=== PATIENT | male | born 2000 | race Caucasian/White ===

== ENCOUNTER 2023-01-30 15:16 | Emergency (ER) | payer OTHER, BC ==
[2023-01-30] MEDS ORDERED: Ondansetron ODT 4 MG TAB ONE (17:04)
== END 2023-01-30 18:07 | disposition home or self-care (01) ==
LOC: CSHERS 15:16
DX: S09.90XA Unspecified injury of head, initial encounter (principal); W01.0XXA Fall on same level from slipping, tripping and stumbling without subsequent striking against object, initial encounter
CPT/HCPCS: 70450; Q0162